=== PATIENT | female | born 1970 | race African-American/Black ===

== ENCOUNTER 2016-12-01 20:39 | Emergency (ER) | payer MEDICAID ==
[~2016-12-01] VITALS: Ht 172.7 cm; Wt 99.0 kg
[2016-12-01] MEDS ORDERED: IBUPROFEN 600MG TABLET PO STA (21:19)
[2016-12-01 21:40] LABS: BASOPHILS % 1.2 % (0.0-2.0); EOSINOPHILS % 1.6 % (0.0-5.0); HEMOGLOBIN. 13.1 g/dL (12.0-16.0); MEAN CORPUSCULAR HEMOGLOBIN 32.4 pg (28.0-32.0); MEAN CORPUSCULAR HGB CONC 33.6 g/dL (31.0-37.0); MEAN CORPUSCULAR VOLUME 96.2 fL (81.0-99.0); NEUTROPHILS % 42.2 % (40.0-76.0); PLATELET 155 x1000/uL (130-400); RED BLOOD CELL COUNT 4.05 mill/uL (4.2-5.4); RED CELL DISTRIBUTION WIDTH 14.6 % (11.6-14.6); WHITE BLOOD COUNT 7.4 x1000/uL (4.5-11.0)
[2016-12-01 21:56] LABS: ALANINE AMINOTRANSFERASE 19 IU/L (13-61); ALBUMIN 3.3 g/dL (3.4-5.0); ANION GAP 11; CALCIUM 8.5 mg/dL (8.5-10.1); CARBON DIOXIDE 27 mEq/L (21-32); CHLORIDE 107 mEq/L (98-107); INDEX HEMOLYSI 1 (1-3); INDEX ICTERIC 1 (1-4); INDEX LIPEMIC 1 (1-3); TROPONIN I < 0.02 ng/mL (0.00-0.04); UREA NITROGEN BLOOD 19 mg/dL (7-21); eGFR 49 mL/min (>60)
[2016-12-02 02:02] VITALS: BP 118/63
== END 2016-12-02 02:17 | disposition home or self-care (01) ==
LOC: ER 20:40
DX: R07.89 Other chest pain (principal); G40.909 Epilepsy, unspecified, not intractable, without status epilepticus; F12.10 Cannabis abuse, uncomplicated; F17.210 Nicotine dependence, cigarettes, uncomplicated; Z88.3 Allergy status to other anti-infective agents
CPT/HCPCS: 36415; 71010; 80053; 81025; 84484; 85025; 85610; 93005; 99285

== ENCOUNTER 2019-01-29 12:47 | Emergency (ER) | payer MEDICAID ==
[~2019-01-29] VITALS: Ht 175.3 cm; Wt 100.0 kg
[2019-01-29 13:55] VITALS: BP 139/90
== END 2019-01-29 16:35 | disposition left against medical advice (07) ==
LOC: ER 12:47
DX: M54.6 Pain in thoracic spine (principal); Z53.21 Procedure and treatment not carried out due to patient leaving prior to being seen by health care provider

== ENCOUNTER 2019-01-30 10:21 | Emergency (ER) | payer MEDICAID | END 2019-01-30 12:15 | disposition left against medical advice (07) | LOC: ER 10:21 | DX: Z53.21 Procedure and treatment not carried out due to patient leaving prior to being seen by health care provider (principal) ==

== ENCOUNTER 2023-05-05 18:59 | Emergency (ER) | payer MEDICAID, OTHER ==
[~2023-05-05] VITALS: Ht 175.3 cm; Wt 77.0 kg
[2023-05-05 19:16] VITALS: O2SAT 98
[2023-05-05 20:34] LABS: BASOPHILS % 0.6 % (0.0-2.0); EOSINOPHILS % 0.9 % (0.0-5.0); HEMATOCRIT. 40.6 % (36.0-48.0); HEMOGLOBIN. 13.7 g/dL (12.0-16.0); LYMPHOCYTES % 32.1 % (20.0-50.0); MEAN CORPUSCULAR HEMOGLOBIN 32.1 pg (28.0-32.0); MEAN CORPUSCULAR HGB CONC 33.7 g/dL (31.0-37.0); MEAN CORPUSCULAR VOLUME 95.2 fL (81.0-99.0); MEAN PLATELET VOLUME 9.2 fl (7.4-10.4); MONOCYTES % 6.1 % (2.0-8.0); NEUTROPHILS % 60.3 % (40.0-76.0); PLATELET 148 x1000/uL (130-400); RED BLOOD CELL COUNT 4.27 mill/uL (4.2-5.4); RED CELL DISTRIBUTION WIDTH 14.9 % (11.6-14.6); WHITE BLOOD COUNT 7.1 x1000/uL (4.5-11.0)
[2023-05-05 20:43] LABS: CHLORIDE 111 mEq/L (98-107); INDEX HEMOLYSI 1 (1-3); INDEX ICTERIC 1 (1-4); INDEX LIPEMIC 1 (1-3); POTASSIUM 3.8 mEq/L (3.5-5.1); SODIUM 139 mEq/L (136-145)
[2023-05-05 20:52] LABS: ALANINE AMINOTRANSFERASE 17 IU/L (13-61); ASPARTATE AMINOTRANSFERASE 12 IU/L (15-37); BILIRUBIN TOTAL 0.4 mg/dL (0.1-1.0); CALCIUM 8.8 mg/dL (8.5-10.1); CARBON DIOXIDE 24 mEq/L (21-32); CREATININE 1.2 mg/dL (0.6-1.3); GLUCOSE 106 mg/dL (70-105); NT PRO B-TYPE NATRIURETIC PEP 13 pg/mL (5-125); PROTEIN TOTAL 7.5 g/dL (6.0-8.3); UREA NITROGEN BLOOD 11 mg/dL (7-21)
[2023-05-05 20:59] LABS: TROPONIN I HIGH SENSITIVITY < 4 ng/L (<54)
[2023-05-05 22:00] VITALS: BP 102/62; PULSE 91; RESP 14; TEMP 98.3
== END 2023-05-05 23:20 | disposition home or self-care (01) ==
LOC: ER 18:59
DX: R55 Syncope and collapse (principal); Z86.59 Personal history of other mental and behavioral disorders; Z88.1 Allergy status to other antibiotic agents
CPT/HCPCS: 36415; 71045; 80053; 83880; 84484; 85025; 93005; 99285